=== PATIENT | female | born 1980 | race Caucasian/White ===

== ENCOUNTER 2019-05-03 13:41 | Emergency (ER) | payer OTHER ==
[~2019-05-03] VITALS: Ht 162.6 cm; Wt 95.3 kg
[2019-05-03 13:42] VITALS: BP 151/67
[2019-05-03] MEDS ORDERED: IBUPROFEN 800 (13:48)
[2019-05-03] MEDS ORDERED: CLEO300C2 PO (14:14)
[2019-05-03] MEDS ORDERED: IBUP-1022 PO (14:14)
== END 2019-05-03 14:19 | disposition home or self-care (01) ==
LOC: M ED 13:41
DX: K05.00 Acute gingivitis, plaque induced (principal); F17.200 Nicotine dependence, unspecified, uncomplicated; Z88.0 Allergy status to penicillin